=== PATIENT | female | born 1955 | race Caucasian/White ===

== ENCOUNTER 2017-04-18 18:10 | Emergency (ER) | payer MEDICAID ==
[2017-04-18 18:11] VITALS: PULSE 89; BMI 27.4
[2017-04-18 18:16] VITALS: RESP 20
[2017-04-18] MEDS ORDERED: Sodium Chloride 0.9% 1,000 ML IV ONE (18:55)
[2017-04-18] MEDS ORDERED: Sodium Chloride 0.9% 1,000 ML ONE (19:33)
[2017-04-18 19:41] LABS: BASO % 0.4 % (0.0-2.0); EOS # 0.1 K/uL (0.0-0.7); EOS % 0.8 % (0.0-4.0); HEMOGLOBIN 9.9 g/dL (11.0-16.0); LYMPH # 0.8 K/uL (1.0-4.3); MEAN CELL VOLUME 86.5 fL (81.0-99.0); MEAN CORPUSCULAR HGB CONC 33.5 g/dL (33.0-37.0); MEAN PLATELET VOLUME 11.1 fL (7.2-11.7); MONO # 0.4 K/uL (0.0-0.8); MONO % 5.6 % (0.0-10.0); NEUT # 6.5 K/uL (1.8-7.0); NEUT % 83.2 % (50.0-75.0); RBC 3.4 Mil/uL (3.80-5.20); WHITE BLOOD COUNT 7.8 K/uL (4.8-10.8)
[2017-04-18 19:45] LABS: ALB/GLOB RATIO 1.1 (1.0-2.1); ALT/SGPT 26 U/L (9-52); AST/SGOT 22 U/L (14-36); BLOOD UREA NITROGEN 17 mg/dL (7-17); CALCIUM 8.9 mg/dl (8.6-10.4); GFR AFRICAN-AMERICAN > 60; GFR NON-AFRICAN AMERICAN 56
--- NOTE | 2017-04-18 21:15 | C.PDOC ---
History Of Present Illness 61 year old female presents to the ED c/o of body aches for the past 3 days. Patient states she vomited twice today, she also reports she had the flu shot this year. Patient denies SOB, CP, nausea, diarrhea, abdominal pain, recent travel, sick contacts. Chief Complaint (Nursing): Flu-like Symptoms History Per: Patient History/Exam Limitations: no limitations Onset/Duration Of Symptoms: Days Current Symptoms Are (Timing): Still Present Location Of Pain: Diffuse Myalgias Sick Contacts (Context): None Associated Symptoms: Vomiting Recent travel outside of the [place]: No Additional History Per: Patient Past Medical History Reviewed: Historical Data, Nursing Documentation, Vital Signs Vital Signs: Last Vital Signs Temp 98.8 F 04/18/17 22:22 Pulse 94 H 04/18/17 22:22 Resp 20 04/18/17 22:22 BP 98/58 L 04/18/17 22:22 Pulse Ox 95 04/18/17 22:22 - Medical History PMH: Arthritis, Asthma, CAD, CHF, HTN, Pulmonary Embolism Denies: Chronic Kidney Disease Surgical History: Pacemaker - [facility] Procedures ASSISTANCE WITH RESPIRATORY VENTILATION, >96 HRS, CPAP (05/19/15) RESPIRATORY VENTILATION, 24-96 CONSECUTIVE HOURS (03/09/15) Family History: States: Unknown Family Hx - Social History Hx Tobacco Use: No Hx Alcohol Use: No Hx Substance Use: No - Immunization History Hx Tetanus Toxoid Vaccination: No Hx Influenza Vaccination: Yes Hx Pneumococcal Vaccination: Yes Review Of Systems Constitutional: Positive for: Malaise. Negative for: Fever, Chills Cardiovascular: Negative for: Chest Pain, Palpitations Respiratory: Negative for: Cough, Shortness of Breath Gastrointestinal: Positive for: Vomiting. Negative for: Abdominal Pain Skin: Negative for: Rash Neurological: Negative for: Weakness, Numbness Physical Exam - Physical Exam Appears: Non-toxic, No Acute Distress Skin: Normal Color, Warm, Dry Head: Atraumatic, Normacephalic Nose: No Discharge, No Deformity Oral Mucosa: Moist Neck: Normal ROM, Supple Chest: Symmetrical Cardiovascular: Rhythm Regular, No Murmur Respiratory: Normal Breath Sounds, No Rales, No Rhonchi, No Wheezing Gastrointestinal/Abdominal: Soft, No Tenderness, No Guarding, No Rebound Extremity: Normal ROM, No Tenderness, No Swelling Neurological/Psych: Oriented x3, Normal Speech, Normal Cognition Gait: Steady ED Course And Treatment - Laboratory Results Result Diagrams: 04/18/17 19:30 04/18/17 19:30 O2 Sat by Pulse Oximetry: 96 (On RA) Pulse Ox Interpretation: Normal Medical Decision Making Medical Decision Making: Impression: body aches Plan: * EKG * CXR * Labs * Blood culture * Influenza A B test * Pepcid 20 mg IVP * IV fluids * Tylenol 650 mg PO * Tylenol 975 mg PO * Zofran 4 mg IVP Disposition - Disposition Referrals: Ekaterina Osullivan, [Non-Staff] - Disposition: HOME/ ROUTINE Disposition Time: 21:00 Condition: GOOD Additional Instructions: Thank you for letting us take care of you today. The emergency medical care you received today was directed at your acute symptoms. If you were prescribed any medication, please fill it and take as directed. It may take several days for your symptoms to resolve. Return to the Emergency Department if your symptoms worsen, do not improve, or if you have any other problems. Please contact your doctor or call one of the physicians/clinics you have been referred to that are listed on the Patient Visit Information form that is included in your discharge packet. Bring any paperwork you were given at discharge with you along with any medications you are taking to your follow up visit. Our treatment cannot replace ongoing medical care by a primary care provider (PCP) outside of the emergency department. Thank you for allowing the [facility] team to be part of your care today. Follow up with your doctor next week for re-evaluation and further management. Christopher por dejarnos atenderlo hoy. La atencin mdica de emergencia que recibi hoy estaba dirigida a dee sntomas agudos. Si le prescribieron algn medicamento, llnelo y tome segn las indicaciones. Dee sntomas pueden tardar varios ordonez en resolverse. Regrese al Departamento de Emergencia si dee s ntomas empeoran, no mejoran o si tiene algn otro problema. Comunquese con cantu mdico o llame a sanjuana de los mdicos / clnicas a los que clarke sido referido que figura en el formulario de Informacin de visita del paciente que se incluye en cantu paquete de [place]. Traiga todos los documentos que recibi al momento del [place] junto con los medicamentos que est tomando en cantu visita de seguimiento. Nuestro tratamiento no puede reemplazar la atencin mdica en curso por parte de un proveedor de atencin primaria (PCP) fuera del departamento de emergencias. Christopher por permitir que el equipo de [facility] sea parte de cantu cuidado hoy. Tricia un seguimiento con cantu mdico la prxima semana para vashti nueva evaluacin y vashti mayor administracin. Prescriptions: Azithromycin [Zithromax] 250 mg PO DAILY #6 tab Ibuprofen [Motrin] 600 mg PO Q6 PRN #20 tab PRN Reason: Pain, Moderate (4-7) Instructions: Upper Respiratory Infection (ED) Forms: Gen Discharge Inst Lithuanian Print Language: INDONESIAN - Clinical Impression Clinical Impression: Influenza-like illness - Scribe Statement The provider has reviewed the documentation as recorded by the Scribe Aramis Roa All medical record entries made by the Scribe were at my direction and personally dictated by me. I have reviewed the chart and agree that the record accurately reflects my personal performance of the history, physical exam, medical decision making, and the department course for this patient. I have also personally directed, reviewed, and agree with the discharge instructions and disposition.
[2017-04-18 22:27] VITALS: BP 98/58; PULSE 94; TEMP 98.8
--- NOTE | 2017-04-19 08:45 | RAD ---
HISTORY: cough COMPARISON: Chest x-ray performed 10/29/15 TECHNIQUE: Chest PA and lateral FINDINGS: LUNGS: Increased lucencies especially within the bilateral upper lung cee compatible with underlying emphysema. No focal consolidation. Please note that chest x-ray has limited sensitivity for the detection of pulmonary masses. PLEURA: No significant pleural effusion identified. No definite pneumothorax . CARDIOVASCULAR: Marked cardiomegaly. Three lead left-sided AICD. Atherosclerotic calcification of the aortic knob. OSSEOUS STRUCTURES: Degenerative changes. VISUALIZED UPPER ABDOMEN: Unremarkable. OTHER FINDINGS: None. IMPRESSION: Marked cardiomegaly. Three lead left-sided AICD. Atherosclerotic calcification of the aortic knob. Increased lucencies especially within the bilateral upper lung cee compatible with underlying emphysema.
--- NOTE | 2017-04-20 14:37 | CARD ---
APPROVED REPORT EKG Measurement Heart [id number] <Conclusion> Atrial-sensed ventricular-paced rhythm Abnormal ECG
[2017-04-20 18:31] VITALS: O2SAT 96
== END 2017-04-18 22:24 | disposition home or self-care (01) ==
LOC: C.ER 18:10
DX: J11.1 Influenza due to unidentified influenza virus with other respiratory manifestations (principal)
CPT/HCPCS: 71046; 80053; 85025; 87040; 87804; 93005; 96374; 96375; 99284; J2405; J7040